=== PATIENT | female | born 2000 | race Caucasian/White ===

== ENCOUNTER 2019-08-08 20:29 | Emergency (ER) | payer SELFPAY ==
[~2019-08-08] VITALS: Ht 162.6 cm; Wt 51.7 kg
--- NOTE | 2019-08-08 20:45 | NUR ---
Patient presents to ER with c/o of LLQ pain radiating to the back that began today. Patient is alert and oriented x 4, denies nausea and vomitting. Patient is in no acute distress. Seen and examined by Dr. Vogt.
[2019-08-08] MEDS ORDERED: ONDANSETRON ODT 4 MG TAB.RAPDIS SL ONE (21:00)
[2019-08-08] MEDS ORDERED: OXYCODONE/APAP 5-325 MG TABLET PO ONE (21:00)
[2019-08-08] MEDS ORDERED: OXYCODONE/APAP 5-325 MG TABLET ONE (21:00)
[2019-08-08] MEDS ORDERED: ONDANSETRON ODT 4 MG TAB.RAPDIS ONE (21:00)
--- NOTE | 2019-08-08 21:00 | NUR ---
Patient tolerated oral fluids well, no complaints of nausea or vomitting.
[2019-08-08 21:13] LABS: *BILIRUBIN,URIN NEGATIVE (NEGATIVE); *BLOOD, URINE 2+ (NEGATIVE); *CLARITY,URINE SLIGHTLY CLOUDY (CLEAR); *COLOR,URINE LIGHT YELLOW (YELLOW); *KETONES,URINE NEGATIVE (NEGATIVE); *UROBILINOGEN,URINE 0.2 E.U./dl (NORMAL); LEUKOCYTE ESTERASE ,URINE 3+ (NEGATIVE); NITRITE, URINE NEGATIVE (NEGATIVE); UGLUCOSE NEGATIVE (NEGATIVE)
[2019-08-08 21:15] LABS: *URINE HCG, QUAL NEGATIVE (NEGATIVE)
[2019-08-08 21:31] LABS: BACTERIA,URINE MODERATE /HPF (NONE SEEN); SQUAMOUS EPITHELIAL CELL,UR FEW /HPF (NONE SEEN); WBC,URINE 20-50 /HPF (0-3)
[2019-08-08] MEDS ORDERED: CEFTRIAXONE 1 G VIAL ONE (21:41)
[2019-08-08] MEDS ORDERED: NITROFURANTOIN/NITROFURAN MAC 100 MG CAPSULE ONE (21:41)
[2019-08-08] MEDS ORDERED: PHENAZOPYRIDINE HCL 100 MG TABLET ONE (21:41)
--- NOTE | 2019-08-08 21:43 | NUR ---
Dr. Vogt at bedside explaining results.
[2019-08-08] MEDS ORDERED: CEFTRIAXONE 1 G VIAL IM ONE (21:45)
[2019-08-08] MEDS ORDERED: PHENAZOPYRIDINE HCL 100 MG TABLET PO ONE (21:45)
[2019-08-08] MEDS ORDERED: NITROFURANTOIN/NITROFURAN MAC 100 MG CAPSULE PO ONE (21:45)
--- NOTE | 2019-08-08 22:08 | NUR ---
Patient discharged to home in stable conditon. DC instructions and prescriptions given and reviewed, verbalized understanding. No adverse reactions to macrobid or rocephin. Patient left ER in stable condition in steady gait.
== END 2019-08-08 22:08 | disposition home or self-care (01) ==
LOC: ER 20:32
DX: N12 Tubulo-interstitial nephritis, not specified as acute or chronic (principal); F17.290 Nicotine dependence, other tobacco product, uncomplicated; Z71.6 Tobacco abuse counseling; Z60.2 Problems related to living alone
CPT/HCPCS: 81000; 81001; 84703; 87077; 87086; 87186; 96372; 99284; 99406; J0696; J3490; A4663; Q0162